=== PATIENT | female | born 1945 | race Caucasian/White ===

== ENCOUNTER 2017-02-25 19:55 | Emergency (ER) | payer MEDICARE, MEDICAID ==
[~2017-02-25 19:55] MED LIST: CHOL20002 PO; IRON15TA3 PO; LEVO100T5 PO; LISI5TAB7 PO; PANT40TA5 PO; PARO40TA3 PO
== END 2017-02-25 20:07 | disposition left against medical advice (07) ==
LOC: ED 20:01
DX: Z53.21 Procedure and treatment not carried out due to patient leaving prior to being seen by health care provider (principal)